=== PATIENT | male | born 1990 | race African-American/Black ===

== ENCOUNTER 2017-01-16 13:35 | Emergency (ER) | payer MEDICAID ==
[~2017-01-16] VITALS: Ht 190.5 cm; Wt 82.7 kg
[2017-01-16] MEDS ORDERED: PHEN100C23 PO (13:51)
[2017-01-16 14:18] VITALS: BP 127/73
== END 2017-01-16 15:00 | disposition home or self-care (01) ==
LOC: EMS 13:38
DX: Z76.0 Encounter for issue of repeat prescription (principal); J06.9 Acute upper respiratory infection, unspecified
CPT/HCPCS: 99283

== ENCOUNTER 2017-01-16 17:29 | Inpatient (IN) | payer MEDICAID ==
[~2017-01-16] VITALS: Ht 188 cm; Wt 74.8 kg
[~2017-01-16 17:29] MED LIST: PHEN100C23 PO
[2017-01-16] MEDS ORDERED: HALOPERIDOL LACTATE 5 MG/ML VIAL ONE (18:40)
[2017-01-16] MEDS ORDERED: LORazepam 2 MG/ML VIAL ONE (18:40)
[2017-01-16] MEDS ORDERED: DiphenhydrAMINE HCL 50 MG/ML VIAL ONE (18:41)
[2017-01-16] MEDS ORDERED: DiphenhydrAMINE HCL 50 MG/ML VIAL IM ONE (18:45)
[2017-01-16] MEDS ORDERED: LORazepam 2 MG/ML VIAL IM ONE (18:45)
[2017-01-16] MEDS ORDERED: HALOPERIDOL LACTATE 5 MG/ML VIAL IM ONE (18:45)
[2017-01-16 19:17] LABS: BASOPHILS % (AUTO) 1.2 % (0.0-2.0); HEMATOCRIT 38.7 % (41-53); HEMOGLOBIN 12.5 g/dL (13.5-17.5); LYMPHOCYTES # (AUTO) 1.7 K/uL (1.0-4.8); LYMPHOCYTES % (AUTO) 13.1 % (22.0-44.0); MEAN CORPUSCULAR HEMOGLOBIN 30.8 pg (26.0-34.0); MEAN CORPUSCULAR HGB CONC 32.3 G/dL (31.0-37.0); MEAN CORPUSCULAR VOLUME 96 fL (80-100); MONOCYTES % (AUTO) 7.4 % (2.0-9.0); NEUTROPHILS # (AUTO) 9.8 K/uL (1.8-7.7); NEUTROPHILS % (AUTO) 75.3 % (40.0-70.0); PLATELET COUNT (AUTO) 328 K/uL (150-450); RED BLOOD CELL COUNT(AUTO) 4.06 MIL/uL (4.50-5.90); RED CELL DISTRIBUTION WIDTH 14.8 % (11.5-14.5)
[2017-01-16 19:47] LABS: ANION GAP 14 mmol/L (8-16); CALCIUM, TOTAL 8.4 mg/dL (8.8-10.5); CARBON DIOXIDE 25 mmol/L (22-29); CHLORIDE 101 mmol/L (98-107); GLOMERULAR FILTR. RATE CALC > 60 mL/min (>60); POTASSIUM 3.2 mmol/L (3.5-5.1); SODIUM SERUM 140 mmol/L (136-145); UREA NITROGEN, BLOOD 9 mg/dL (7-18)
[2017-01-16 19:53] LABS: ALANINE AMINOTRANSFERASE 21 U/L (12-78); ALBUMIN 2.8 g/dL (3.4-5.0); ASPARTATE AMINOTRANSFERASE 18 U/L (15-37); BILIRUBIN,TOTAL 0.2 mg/dL (0.1-1.0); TOTAL PROTEIN, SERUM 7.1 g/dL (6.4-8.2)
[2017-01-16] MEDS ORDERED: HALOPERIDOL 5 MG TABLET PO PRN (20:15)
[2017-01-16] MEDS ORDERED: LORazepam 2 MG TABLET PO PRN (20:15)
[2017-01-16 21:37] LABS: APPEARANCE,URINE CLEAR (CLEAR); GLUCOSE, URINE (UA) NEGATIVE (NEGATIVE); KETONES,URINE TRACE mg/dL (NEGATIVE); LEUKOCYTE ESTERASE ,URINE SMALL (NEGATIVE); OCCULT BLOOD,URINE NEGATIVE (NEGATIVE); PROTEIN,URINE NEGATIVE (NEGATIVE)
[2017-01-16 21:39] LABS: ADD UA MICROSCOPIC YES
[2017-01-16] MEDS ORDERED: POTASSIUM CHLORIDE 20 MEQ ER TABLET PO ONE (21:45)
[2017-01-16 22:07] LABS: SQUAMOUS EPITHELIAL CELL,UR Few /LPF (None Seen)
[2017-01-16 22:08] LABS: RBC,URINE 0-2 /HPF (0-2)
[2017-01-17 00:10] VITALS: BP 107/61
[2017-01-17] MEDS ORDERED: INFLUENZA VIRUS VACCINE QVS 2016-17 (3YR+)/PF 60 MCG/0.5 ML SYRINGE IM ONE (00:30)
[2017-01-17] MEDS: NICOTINE 21 MG/24 HOUR PATCH TD SCH (13:25)
[2017-01-17 16:30] VITALS: BP 114/64
[2017-01-17] MEDS: PRAZOSIN HCL 2 MG CAPSULE PO SCH (21:44)
[2017-01-17] MEDS: ZOLPIDEM TARTRATE 10 MG TABLET PO PRN (21:44)
[2017-01-17] MEDS: OLANZapine 5 MG TABLET PO SCH (21:44)
[2017-01-18 06:41] VITALS: BP 108/65
[2017-01-18] MEDS: NICOTINE 21 MG/24 HOUR PATCH TD SCH (09:44)
[2017-01-18] MEDS: PHENYTOIN SODIUM 100 MG ER CAPSULE PO SCH ×3 (09:44→16:56)
[2017-01-18 16:04] VITALS: BP 110/67
[2017-01-18 20:33] VITALS: BP 118/70
[2017-01-18] MEDS: OLANZapine 5 MG TABLET PO SCH (20:35)
[2017-01-18] MEDS: ZOLPIDEM TARTRATE 10 MG TABLET PO PRN (20:35)
[2017-01-18] MEDS: PRAZOSIN HCL 2 MG CAPSULE PO SCH (20:35)
[2017-01-19 06:43] VITALS: BP 109/75
[2017-01-19 08:01] VITALS: BP 112/74
[2017-01-19] MEDS: NICOTINE 21 MG/24 HOUR PATCH TD SCH (09:24)
[2017-01-19] MEDS: PHENYTOIN SODIUM 100 MG ER CAPSULE PO SCH ×2 (09:24→13:18)
[2017-01-19] MEDS ORDERED: OLAN5TAB2 PO (12:35)
[2017-01-19] MEDS ORDERED: PRAZ2 PO (12:38)
== END 2017-01-19 13:55 | disposition home or self-care (01) | DRG 751 ==
LOC: EMS 17:31 → EEVIPCON 17:31 → B3A 21:20
PROVIDERS: ADMIT Psychiatry & Neurology Psychiatry; ATTEND Psychiatry & Neurology Psychiatry
DX: F33.2 Major depressive disorder, recurrent severe without psychotic features (principal); R45.851 Suicidal ideations; Z78.1 Physical restraint status; G40.909 Epilepsy, unspecified, not intractable, without status epilepticus; F12.90 Cannabis use, unspecified, uncomplicated; D64.9 Anemia, unspecified; F15.10 Other stimulant abuse, uncomplicated; F60.3 Borderline personality disorder; F43.10 Post-traumatic stress disorder, unspecified
CPT/HCPCS: 87086; 90471; 96372; 99285; G0480; J1200; J1630; J2060